=== PATIENT | female | born 1970 | race Caucasian/White ===

== ENCOUNTER 2017-06-01 16:35 | Emergency (ER) | payer BC ==
[2017-06-01] MEDS ORDERED: Sodium Chloride 0.9% 10 ML Syringe FLUSH PRN (16:56)
[2017-06-01] MEDS ORDERED: Aspirin 81 MG Tab.Chew PO ONE (16:57)
--- NOTE | 2017-06-01 17:02 | EDM.PDOC ---
ED HPI GENERAL MEDICAL PROBLEM - General Chief Complaint: Chest Pain Stated Complaint: Chest pressure Time Seen by Provider: 06/01/17 16:40 Source of Information: Reports: Patient, Provider (Report recieved from Esther MARTIN), RN Notes Reviewed History Limitations: Reports: No Limitations - History of Present Illness INITIAL COMMENTS - FREE TEXT/NARRATIVE: 47 year old female referred to the ED by Esther MARTIN for evaluation of chest pressure. The patient reports substernal chest pressure for the past two days. The symptoms have been intermittent. The pressure seems to be worse at rest and is not associated with exertion. The pressure radiates into her left neck, left shoulder, and into her back. She has no shortness of breath, pleuritic chest pain, cough, fever, chills, calf pain, or lower extremity erythema or swelling. She has no history of heart problems. She is a type II diabetic. She has a strong family history of coronary artery disease but no personal history of CAD. She is not a smoker. She is not on any forms if control. No recent travel. Left Chest Pain Score (Numeric/FACES): 5 - Related Data Allergies Allergy/AdvReac Type Severity Reaction Status Date / Time Antihistamines - Piperidine Allergy Hyperactivi Verified 06/01/17 16:44 ty cephalexin Allergy Hives Verified 06/01/17 16:44 Home Meds: Home Meds Dapagliflozin Propanediol [Farxiga] 1 tab PO DAILY 08/04/16 [History] Montelukast [Singulair] 10 mg PO DAILY PRN 08/04/16 [History] atorvaSTATin Calcium [Atorvastatin Calcium] 1 tab PO BEDTIME 08/04/16 [History] sitaGLIPtin Phos/Metformin HCl [Janumet Xr 50-1,000 mg Tablet] 1 tab PO BID [History] Past Medical History HEENT History: Reports: Allergic Rhinitis, Impaired Vision, Sinusitis Other HEENT History: throat discomfort, wears glasses Cardiovascular History: Reports: High Cholesterol Respiratory History: Reports: Other (See Below) Other Respiratory History: cough Gastrointestinal History: Reports: Other (See Below) Other Gastrointestinal History: endoscopy Neurological History: Reports: Migraines Endocrine/Metabolic History: Reports: Diabetes, Type II, Other (See Below) Other Endocrine/Metabolic History: thyroid nodule - Past Surgical History Female Surgical History: Reports: Hysterectomy Musculoskeletal Surgical History: Reports: Other (See Below) Social & Family History - Tobacco Use Smoking Status *Q: Never Smoker - Recreational Drug Use Recreational Drug Use: No ED ROS GENERAL - Review of Systems Review Of Systems: See Below Constitutional: Reports: No Symptoms. Denies: Fever, Chills, Diaphoresis Respiratory: Reports: No Symptoms. Denies: Shortness of Breath, Pleuritic Chest Pain, Cough, Sputum Cardiovascular: Reports: Chest Pain. Denies: Dyspnea on Exertion, Edema, Lightheadedness, Palpitations GI/Abdominal: Reports: Other (increased belching). Denies: Abdominal Pain, Nausea, Vomiting ED EXAM, GENERAL - Physical Exam Exam: See Below Exam Limited By: No Limitations General Appearance: Alert, Anxious, Obese Respiratory/Chest: No Respiratory Distress, Lungs Clear, Normal Breath Sounds Cardiovascular: Normal Peripheral Pulses, Regular Rate, Rhythm, No Edema, No Murmur GI/Abdominal: Normal Bowel Sounds, Soft, Non-Tender, No Distention Extremities: Normal Inspection. No: Pedal Edema, Increased Warmth Neurological: Alert, Oriented, Normal Cognition Psychiatric: Anxious, Tearful Skin Exam: Warm, Dry, Intact EKG INTERPRETATION EKG Date: 06/01/17 Time: 16:47 Rhythm: NSR Rate (Beats/Min): 91 [place]: Normal P-Wave: Present QRS: Normal ST-T: Normal QT: Normal EKG Interpretation Comments: No acute ischemic changes. Read by Dr. Irizarry. Course - Vital Signs Last Recorded V/S: Last Vital Signs Temp 97.7 F 06/01/17 19:35 Pulse 89 06/01/17 19:35 Resp 16 06/01/17 19:35 BP 145/86 H 06/01/17 19:35 Pulse Ox 96 06/01/17 19:35 - Orders/Labs/Meds Labs: Laboratory Tests 06/01/17 06/01/17 06/01/17 Range/Units 16:55 16:56 19:10 WBC 9.78 (3.98-10.04) K/mm3 RBC 5.31 H (3.98-5.22) M/mm3 Hgb 14.2 (11.2-15.7) gm/L Hct 43.9 (34.1-44.9) % MCV 82.7 (79.4-94.8) fl MCH 26.7 (25.6-32.2) pg MCHC 32.3 (32.2-35.5) g/dl RDW Std Deviation 41.9 (36.4-46.3) fL Plt Count 297 (182-369) K/mm3 MPV 10.0 (9.4-12.3) fl Neut % (Auto) 55.6 (34.0-71.1) % Lymph % (Auto) 35.7 (19.3-51.7) % [place] % (Auto) 5.0 (4.7-12.5) % Eos % (Auto) 3.3 (0.7-5.8) Baso % (Auto) 0.3 (0.1-1.2) % Neut # (Auto) 5.44 (1.56-6.13) K/mm3 Lymph # (Auto) 3.49 (1.18-3.74) K/mm3 [place] # (Auto) 0.49 H (0.24-0.36) K/mm3 Eos # (Auto) 0.32 (0.04-0.36) K/mm3 Baso # (Auto) 0.03 (0.01-0.08) K/mm3 Sodium 139 (136-145) mEq/L Potassium 3.9 (3.5-5.1) mEq/L Chloride 102 (98-107) mEq/L Carbon Dioxide 29 (21-32) mEq/L Anion Gap 11.9 (5-15) BUN 15 (7-18) mg/dL Creatinine 0.9 (0.55-1.02) mg/dL Est Cr Clr Drug Dosing 68.79 mL/min Estimated GFR (MDRD) > 60 (>60) mL/min BUN/Creatinine Ratio 16.7 (14-18) Glucose 136 H (74-106) mg/dL Calcium 9.3 (8.5-10.1) mg/dL Total Bilirubin 0.5 (0.2-1.0) mg/dL AST 32 (15-37) U/L ALT 57 (14-59) U/L Alkaline Phosphatase 98 (46-116) U/L Troponin I < 0.017 < 0.017 (0.00-0.056) ng/mL Total Protein 8.3 H (6.4-8.2) g/dl Albumin 4.4 (3.4-5.0) g/dl Globulin 3.9 gm/dL Albumin/Globulin Ratio 1.1 (1-2) Meds: Medications Discontinued Medications Generic Name Dose Route Start Last Admin Trade Name Anna PRN Reason Stop Dose Admin Aspirin 324 mg 06/01/17 16:57 06/01/17 17:01 Aspirin PO 06/01/17 16:58 324 mg ONETIME ONE Administration Sodium Chloride 10 ml 06/01/17 16:56 06/01/17 17:01 Saline Flush FLUSH 10 ml ASDIRECTED PRN Administration Keep Vein Open - Re-Assessments/Exams Free Text/Narrative Re-Assessment/Exam: Negative PERC rule making PE very unlikely. CBC and CMP are unremarkable. Initial and repeat 2 hour troponins are negative. The patient has tenderness on palpation to the chest and neck muscles. Likely musculoskeletal etiology. Will start her on omeprazole for the belching symptoms. Instructed to return with any new or worsening symptoms. Educated follow up with her PCP. We discussed her risk factors for heart disease. Departure - Departure Time of Disposition: 19:56 Disposition: Home, Self-Care 01 Condition: Good Clinical Impression: Belching Chest pain, unspecified Qualifiers: Chest pain type: unspecified Qualified Code(s): R07.9 - Chest pain, unspecified Neck muscle strain Qualifiers: Encounter type: initial encounter Qualified Code(s): S16.1XXA - Strain of muscle, fascia and tendon at neck level, initial encounter Instructions: Nonspecific Chest Pain Referrals: Brooke Vivas PA-C [Primary Care Provider] - Forms: ED Department Discharge Additional Instructions: Start Omeprazole 20mg twice a day Tylenol or Ibuprofen as needed for pain Heating pad to neck and areas of muscle discomfort. Follow-up with your primary care provider in 2-3 days for recheck Return to ER with any new or worsening symptoms.
[2017-06-01 19:36] VITALS: BP 145/86
--- NOTE | 2017-06-02 06:45 | CR ---
Chest: Portable view of the chest was obtained. Comparison: Previous chest x-ray of 02/06/16. Heart size and mediastinum are within normal limits for portable technique. Lungs are clear. Bony structures are grossly intact. Impression: 1. Nothing acute is seen on portable chest x-ray. Diagnostic code #1
== END 2017-06-01 20:08 | disposition home or self-care (01) ==
LOC: JD.ED 16:35
DX: S16.1XXA Strain of muscle, fascia and tendon at neck level, initial encounter (principal); R14.2 Eructation; R07.9 Chest pain, unspecified; E78.00 Pure hypercholesterolemia, unspecified; E11.9 Type 2 diabetes mellitus without complications; G43.909 Migraine, unspecified, not intractable, without status migrainosus; Z88.8 Allergy status to other drugs, medicaments and biological substances; Z79.899 Other long term (current) drug therapy; Z88.1 Allergy status to other antibiotic agents; Z90.710 Acquired absence of both cervix and uterus; X58.XXXA Exposure to other specified factors, initial encounter
CPT/HCPCS: 36415; 71010; 80053; 84484; 85025; 93005; 99285; A9270; J7050; 99283

== ENCOUNTER 2019-05-03 10:41 | Day surgery (SDC) | payer BC ==
[~2019-05-03 10:41] MED LIST: Lactated Ringers 1,000 ML IV SCH; Lidocaine 1%/Sod Bicarbonate in NS 8.4% 1 ML Syringe IDERM PRN; Sodium Chloride 0.9% 10 ML Syringe FLUSH PRN
[2019-05-03] MEDS ORDERED: Propofol 200 MG/20 ML SDV ONE ×2 (10:59→11:00)
[2019-05-03] MEDS ORDERED: Lidocaine 1% 4 ML ONE (11:00)
--- NOTE | 2019-05-03 11:29 | PCM.PREANE ---
Preanesthetic Assessment - Anesthesia/Transfusion/Family Hx Anesthesia History: Prior Anesthesia Without Reaction Family History of Anesthesia Reaction: No Transfusion History: No Prior Transfusion(s) - Review of Systems General: No Symptoms Pulmonary: No Symptoms Cardiovascular: No Symptoms Gastrointestinal: No Symptoms Neurological: No Symptoms Other: Reports: Diabetes (146 @11:00) - Physical Assessment NPO Status Date: 05/03/19 NPO Status Time: 04:00 Pulse: 79 O2 Sat by Pulse Oximetry: 96 Respiratory Rate: 16 Blood Pressure: 125/83 Temperature: 36.3 C Vital Signs: Last Vital Signs Temp 36.3 C 05/03/19 10:45 Pulse 79 05/03/19 10:45 Resp 16 05/03/19 10:45 BP 125/83 05/03/19 10:45 Pulse Ox 96 05/03/19 10:45 Height: 1.68 m Weight: 117.934 kg ASA Class: 2 Mental Status: Alert & Oriented x3 Airway Class: Mallampati = 2 Dentition: Reports: Normal Dentition Thyro-Mental Finger Breadths: 2 Mouth Opening Finger Breadths: 2 ROM/Head Extension: Full Lungs: Clear to Auscultation, Normal Respiratory Effort Cardiovascular: Regular Rate, Regular Rhythm - Allergies Allergies/Adverse Reactions: Allergies Allergy/AdvReac Type Severity Reaction Status Date / Time Antihistamines - Piperidine Allergy Hyperactivi Verified 05/02/19 13:55 ty cephalexin Allergy Hives Verified 05/02/19 13:55 - Blood Blood Available: No Product(s) Available: None - Anesthesia Plan Pre-Op Medication Ordered: None - Acknowledgements Anesthesia Type Planned: MAC Pt an Appropriate Candidate for the Planned Anesthesia: Yes Alternatives and Risks of Anesthesia Discussed w Pt/Guardian: Yes Pt/Guardian Understands and Agrees with Anesthesia Plan: Yes PreAnesthesia Questionnaire HEENT History: Reports: Allergic Rhinitis, Impaired Vision, Sinusitis, Other ( See Below) Other HEENT History: throat discomfort, wears glasses, pharyngitis, ear pain Cardiovascular History: Reports: High Cholesterol Respiratory History: Reports: Other (See Below) Other Respiratory History: cough Gastrointestinal History: Reports: Other (See Below) Other Gastrointestinal History: endoscopy, dysphagia Genitourinary History: Reports: Other (See Below) Other Genitourinary History: dysuria GALLEY BOY History: Reports: Other (See Below) Other OB/BYN History: vaginal irritation Neurological History: Reports: Headaches, Chronic, Migraines, Other (See Below) Other Neuro History: cerviclagia Psychiatric History: Reports: None Endocrine/Metabolic History: Reports: Diabetes, Type II, Other (See Below) Other Endocrine/Metabolic History: thyroid nodule Hematologic History: Reports: None Immunologic History: Reports: None Oncologic (Cancer) History: Reports: None Dermatologic History: Reports: Other (See Below) Other Dermatologic History: dry skin, hair loss - Past Surgical History Head Surgeries/Procedures: Reports: None HEENT Surgical History: Reports: Tonsillectomy Female Surgical History: Reports: Hysterectomy Musculoskeletal Surgical History: Reports: Other (See Below) Other Musculoskeletal Surgeries/Procedures:: hip surgery bilateral as child, states growth plates were off, has hardware in place Oncologic Surgical History: Reports: None - SUBSTANCE USE Smoking Status *Q: Never Smoker Tobacco Use Within Last Twelve Months: No Second Hand Smoke Exposure: No Days Per Week of Alcohol Use: 0 Number of Drinks Per Day: 0 Total Drinks Per Week: 0 Recreational Drug Use History: No - HOME MEDS Home Medications: Home Meds atorvaSTATin Calcium [Atorvastatin Calcium] 20 mg PO BEDTIME 08/04/16 [History] sitaGLIPtin Phos/Metformin HCl [Janumet Xr 50-1,000 mg Tablet] 1 tab PO BID [History] Azelastine/Fluticasone [Dymista Nasal [place]] 2 spray NASBOTH DAILY 05/02/19 [ History] Celecoxib 200 mg PO DAILY 05/02/19 [History] Dapagliflozin Propanediol [Farxiga] 10 mg PO DAILY 05/02/19 [History] Ibuprofen [Advil Migraine] 800 mg PO BEDTIME PRN 05/02/19 [History] Multivitamin [Zoo Chews] 1 tab PO DAILY 05/02/19 [History] - CURRENT (IN HOUSE) MEDS Current Meds: Current Medications Lactated Ringer's (Ringers, Lactated) 1,000 mls @ 125 mls/hr IV ASDIRECTED [place] Stop: 05/03/19 23:00 Last Admin: 05/03/19 11:00 Dose: 125 mls/hr Lidocaine/Sodium Bicarbonate (Buffered Lidocaine 1% In Ns 8.4%) 0.25 ml IDERM ONETIME PRN PRN Reason: Prior to IV Start Stop: 05/03/19 18:00 Sodium Chloride (Saline Flush) 10 ml FLUSH ASDIRECTED PRN PRN Reason: Keep Vein Open Stop: 05/03/19 18:00 Discontinued Medications Lidocaine HCl (Xylocaine-Mpf 1%) Confirm Administered Dose 4 mls @ as directed .ROUTE .STK-MED ONE Stop: 05/03/19 11:01 Propofol (Diprivan 20 Ml) Confirm Administered Dose 200 mg .ROUTE .STK-MED ONE Stop: 05/03/19 11:00 Propofol (Diprivan 20 Ml) Confirm Administered Dose 200 mg .ROUTE .STK-MED ONE Stop: 05/03/19 11:01
[2019-05-03] MEDS ORDERED: Midazolam 1 MG/ML 2 ML SDV ONE (11:53)
[2019-05-03] MEDS ORDERED: fentaNYL 100 MCG/2 ML SDV ONE (11:56)
[2019-05-03] MEDS ORDERED: Simethicone Drops 40 MG/0.6 ML 30 ML Bottle ONE (12:16)
[2019-05-03 12:53] VITALS: BP 123/79
--- NOTE | 2019-05-03 13:43 | OR ---
DATE OF OPERATION: 05/03/2019 SURGEON: Mani Ruhterford MD PREOPERATIVE DIAGNOSIS: Strong family history of colorectal cancer, colorectal cancer screening. POSTOPERATIVE DIAGNOSIS: Strong family history of colorectal cancer, colorectal cancer screening. OPERATION PERFORMED: Screening colonoscopy. FINDINGS: Normal colon. Excellent bowel prep. No diverticulosis. No polyps were identified. ANESTHESIA: MAC. PATHOLOGY: None. ESTIMATED BLOOD LOSS: None. COMPLICATIONS: None. DISPOSITION: Stable at the end of procedure. INDICATION: The patient is a 49-year-old female, here for her first colonoscopy. She has 3 siblings who all were diagnosed with colon cancer in the early 50s. She was offered a screening colonoscopy per the standard of care. She was fully informed of the major risks, benefits, and alternatives. Please see my previous note for further details of that discussion. She gave informed consent of what was done. DESCRIPTION OF PROCEDURE: The patient was brought to the Gastro suite and placed in the left lateral decubitus position. She was given monitored anesthesia. A digital rectal exam was performed. This was unremarkable. I introduced the colonoscope with copious lubrication into the rectum. I advanced the scope with gentle forward pressure keeping the lumen in view at all times. I identified the cecum. The cecum was documented photographically for the chart. I slowly investigated the mucosa of the colon from the cecum back to the anus in an exam lasting 8 minutes. A thorough careful examination failed to demonstrate polyps, diverticulosis, or any other concerning finding. I got an excellent visualization due to her excellent bowel prep. At the end of the procedure, the scope was withdrawn. She was awakened from anesthesia and moved to Recovery in stable condition. PLAN: She will need another screening colonoscopy in 5 years due to her strong family history of colon cancer. MMODAL /[id number]
== END 2019-05-03 12:45 | disposition home or self-care (01) ==
LOC: JD.SDS 10:41
PROVIDERS: ATTEND Surgery
DX: Z12.11 Encounter for screening for malignant neoplasm of colon (principal); Z80.0 Family history of malignant neoplasm of digestive organs; E11.9 Type 2 diabetes mellitus without complications; E78.00 Pure hypercholesterolemia, unspecified; R13.10 Dysphagia, unspecified; M79.641 Pain in right hand; M79.642 Pain in left hand; M25.551 Pain in right hip; M25.552 Pain in left hip; Z88.1 Allergy status to other antibiotic agents; Z88.8 Allergy status to other drugs, medicaments and biological substances; Z79.84 Long term (current) use of oral hypoglycemic drugs; Z79.899 Other long term (current) drug therapy; G43.909 Migraine, unspecified, not intractable, without status migrainosus
CPT/HCPCS: 00812; 82962; A9270-GY; J2001; J2250; J2704; J3010; J7120

== ENCOUNTER 2020-09-28 23:43 | Emergency (ER) | payer BC ==
[2020-09-29 00:02] VITALS: BP 183/84; PULSE 88
[2020-09-29] MEDS ORDERED: Acetaminophen/Codeine 120-12 MG/5 ML Soln 5 ML UD Cup PO ONE (00:38)
[2020-09-29] MEDS ORDERED: Ondansetron 4 MG/2 ML SDV IVPUSH ONE (00:38)
[2020-09-29] MEDS ORDERED: Sodium Chloride 0.9% 1,000 ML IV SCH (00:45)
--- NOTE | 2020-09-29 00:46 | EDM.PDOC ---
ED HPI GENERAL MEDICAL PROBLEM - General Chief Complaint: Respiratory Problem Stated Complaint: COVID +, SOB, COUGH, VOMITING Time Seen by Provider: 09/29/20 00:04 Source of Information: Reports: Patient History Limitations: Reports: No Limitations - History of Present Illness INITIAL COMMENTS - FREE TEXT/NARRATIVE: This is a 50-year-old female. She was diagnosed with Covid late this week may be or Wednesday. She has had symptoms now for about 7 days. She complains of a cough body aches nausea vomiting and some diarrhea. When she arrived to the ER her pulse ox was 93% on room air temperature was 99.7. She states that she is having a hard time keeping fluids and food down because she gets nauseated and vomits them back up. She also has a persistent nagging cough that keeps her from being able to sleep and rest. She states she just feels miserable. Generalized Pain Score (Numeric/FACES): 6 - Related Data Allergies Allergy/AdvReac Type Severity Reaction Status Date / Time Antihistamines - Piperidine Allergy Hyperactivi Verified 09/29/20 00:02 ty cephalexin Allergy Hives Verified 09/29/20 00:02 Home Meds: Home Meds atorvaSTATin Calcium [Atorvastatin Calcium] 20 mg PO BEDTIME 08/04/16 [History] sitaGLIPtin Phos/Metformin HCl [Janumet Xr 50-1,000 mg Tablet] 1 tab PO BID 08/04/16 [History] Azelastine/Fluticasone [Dymista Nasal [place]] 2 spray NASBOTH DAILY 05/02/19 [History] Celecoxib 200 mg PO DAILY 05/02/19 [History] Dapagliflozin Propanediol [Farxiga] 10 mg PO DAILY 05/02/19 [History] Ibuprofen [Advil Migraine] 800 mg PO BEDTIME PRN 05/02/19 [History] Multivitamin [Zoo Chews] 1 tab PO DAILY 05/02/19 [History] Acetaminophen with Codeine [Acetaminophen-Codeine Elixir] 10 ml PO Q6H PRN #473 elixir 09/29/20 [Rx] Albuterol Sulfate [Albuterol Sulfate Hfa] 2 puff IH Q6H PRN #1 hfa.aer.ad 09/29/20 [Rx] Ondansetron [Zofran] 4 mg PO Q6H PRN #15 tab 09/29/20 [Rx] Past Medical History HEENT History: Reports: Allergic Rhinitis, Impaired Vision, Sinusitis, Other (See Below) Other HEENT History: throat discomfort, wears glasses, pharyngitis, ear pain Cardiovascular History: Reports: High Cholesterol Respiratory History: Reports: Other (See Below) Other Respiratory History: cough Gastrointestinal History: Reports: Other (See Below) Other Gastrointestinal History: endoscopy, dysphagia Genitourinary History: Reports: Other (See Below) Other Genitourinary History: dysuria INGREDIENT SCALER History: Reports: Other (See Below) Other INGREDIENT SCALER History: vaginal irritation Neurological History: Reports: Headaches, Chronic, Migraines, Other (See Below) Other Neuro History: cerviclagia Psychiatric History: Reports: None Endocrine/Metabolic History: Reports: Diabetes, Type II, Other (See Below) Other Endocrine/Metabolic History: thyroid nodule Hematologic History: Reports: None Immunologic History: Reports: None Oncologic (Cancer) History: Reports: None Dermatologic History: Reports: Other (See Below) Other Dermatologic History: dry skin, hair loss - Infectious Disease History Infectious Disease History: Reports: Novel Coronavirus - Past Surgical History HEENT Surgical History: Reports: Tonsillectomy Female Surgical History: Reports: Hysterectomy, Salpingo-Oophorectomy Musculoskeletal Surgical History: Reports: Hip Replacement, Other (See Below) Other Musculoskeletal Surgeries/Procedures:: hip surgery bilateral as child, states growth plates were off, has hardware in place Social & Family History - Tobacco Use Tobacco Use Status *Q: Unknown Ever Used Tobacco - Caffeine Use Caffeine Use: Reports: Coffee ED ROS GENERAL - Review of Systems Review Of Systems: See Below Constitutional: Reports: Fever, Chills, Fatigue HEENT: Reports: Rhinitis. Denies: Throat Pain, Throat Swelling Respiratory: Reports: Shortness of Breath, Cough. Denies: Wheezing Cardiovascular: Reports: No Symptoms Endocrine: Reports: No Symptoms GI/Abdominal: Reports: Diarrhea, Nausea, Vomiting. 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) Eye Exam: Bilateral Eye: Normal Inspection Ears: Normal External Exam, Normal Canal, Normal TMs Nose: Normal Inspection, Clear Rhinorrhea Throat/Mouth: Normal Inspection, Normal Lips, Normal Oropharynx, Normal Voice, No Airway Compromise, Other (Mucous membranes are tacky) Head: Normocephalic Neck: Supple Respiratory/Chest: No Respiratory Distress, Lungs Clear, Normal Breath Sounds, Other (Occasional wheezes noted) Cardiovascular: Regular Rate, Rhythm, No Murmur GI/Abdominal: Soft, Non-Tender Back Exam: Normal Inspection, Full Range of Motion Extremities: Normal Inspection, Normal Range of Motion Neurological: Alert, Oriented Psychiatric: Normal Affect, Normal Mood Skin Exam: Warm, Dry Course - Vital Signs Last Recorded V/S: Last Vital Signs Temp 99.7 F 09/28/20 23:57 Pulse 88 09/28/20 23:57 Resp 30 H 09/28/20 23:57 BP 183/84 H 09/28/20 23:57 Pulse Ox 93 L 09/28/20 23:57 - Orders/Labs/Meds Orders: Active Orders 24 hr Category Date Time Status CXR [Chest 1V Frontal] [CR] Stat Exams 09/29/20 00:37 Taken Sodium Chloride 0.9% [Normal Saline] 1,000 ml Med 09/29/20 00:45 Active IV ASDIRECTED Medication Orders Sodium Chloride (Normal Saline) 1,000 mls @ 1,000 mls/hr IV ASDIRECTED [place] Last Admin: 09/29/20 00:59 Dose: 1,000 mls/hr Documented by: ALEENA Labs: Laboratory Tests 09/29/20 09/29/20 09/29/20 Range/Units 00:55 00:55 00:55 WBC 3.22 L (3.98-10.04) K/mm3 RBC 4.35 (3.98-5.22) M/mm3 Hgb 11.9 D (11.2-15.7) gm/dl Hct 36.5 (34.1-44.9) % MCV 83.9 (79.4-94.8) fl MCH 27.4 (25.6-32.2) pg MCHC 32.6 (32.2-35.5) g/dl RDW Std Deviation 45.4 (36.4-46.3) fL Plt Count 177 L D (182-369) K/mm3 MPV 10.8 (9.4-12.3) fl Neut % (Auto) 76.4 H (34.0-71.1) % Lymph % (Auto) 17.1 L (19.3-51.7) % [place] % (Auto) 5.9 (4.7-12.5) % Eos % (Auto) 0.3 L (0.7-5.8) Baso % (Auto) 0.3 (0.1-1.2) % Neut # (Auto) 2.46 (1.56-6.13) K/mm3 Lymph # (Auto) 0.55 L (1.18-3.74) K/mm3 [place] # (Auto) 0.19 L (0.24-0.36) K/mm3 Eos # (Auto) 0.01 L (0.04-0.36) K/mm3 Baso # (Auto) 0.01 (0.01-0.08) K/mm3 Sodium 128 L D (136-145) mEq/L Potassium 3.6 (3.5-5.1) mEq/L Chloride 91 L D (98-107) mEq/L Carbon Dioxide 25 (21-32) mEq/L Anion Gap 15.6 H (5-15) BUN 6 L (7-18) mg/dL Creatinine 0.8 (0.55-1.02) mg/dL Est Cr Clr Drug Dosing 77.88 mL/min Estimated GFR (MDRD) > 60 (>60) mL/min BUN/Creatinine Ratio 7.5 L (14-18) Glucose 231 H (74-106) mg/dL Calcium 8.8 (8.5-10.1) mg/dL Ferritin 728 H (8-252) ng/ml Total Bilirubin 0.6 (0.2-1.0) mg/dL AST 43 H (15-37) U/L ALT 35 (14-59) U/L Alkaline Phosphatase 66 (46-116) U/L Lactate Dehydrogenase 429 H (81-234) U/L Troponin I < 0.017 (0.00-0.056) ng/mL C-Reactive Protein 14.8 H* (<1.0) mg/dL Total Protein 7.5 (6.4-8.2) g/dl Albumin 3.2 L (3.4-5.0) g/dl Globulin 4.3 gm/dL Albumin/Globulin Ratio 0.7 L (1-2) Meds: Medications Generic Name Dose Route Start Last Admin Trade Name Anna PRN Reason Stop Dose Admin Sodium Chloride 1,000 mls @ 1,000 mls/hr 09/29/20 00:45 09/29/20 00:59 Normal Saline IV 1,000 mls/hr ASDIRECTED [place] Administration Discontinued Medications Generic Name Dose Route Start Last Admin Trade Name Anna PRN Reason Stop Dose Admin Acetaminophen/Codeine Phosphate 10 ml 09/29/20 00:38 09/29/20 00:56 Tylenol/Codeine 120-12 Mg/5 Ml PO 09/29/20 00:39 10 ml ONETIME ONE Administration Ondansetron HCl 4 mg 09/29/20 00:38 09/29/20 00:59 Zofran IVPUSH 09/29/20 00:39 4 mg ONETIME ONE Administration - Radiology Interpretation Free Text/Narrative:: Chest x-ray does suggest the groundglass appearance of a Covid lung. - Re-Assessments/Exams Free Text/Narrative Re-Assessment/Exam: 09/29/20 02:15 And is noted to have elevated parameters of ferritin LDH C-reactive protein related to her Covid infection. I spoke to her about her x-ray and her lab work and also her lobe sodium. I encouraged her to drink Gatorade more than water but she is got to drink fluids. Her cough has settled down which she is grateful for. I will also put her on a albuterol inhaler since she has a history of asthma and she is having some mild wheezing. She is to stay in quarantine until the 14-day is up and then she needs to follow-up with her family doctor for recheck. Departure - Departure Time of Disposition: 02:16 Disposition: Home, Self-Care 01 Condition: Fair Clinical Impression: Lab test positive for detection of COVID-19 virus, Pneumonia due to COVID-19 virus, Hyponatremia, Dehydration, Cough, History of asthma - Discharge Information *PRESCRIPTION DRUG MONITORING PROGRAM REVIEWED*: Not Applicable *COPY OF PRESCRIPTION DRUG MONITORING REPORT IN PATIENT SOPHIA: Not Applicable Prescriptions: Acetaminophen with Codeine [Acetaminophen-Codeine Elixir] 10 ml PO Q6H PRN #473 elixir PRN Reason: Cough Albuterol Sulfate [Albuterol Sulfate Hfa] 2 puff IH Q6H PRN #1 hfa.aer.ad PRN Reason: Wheezing Ondansetron [Zofran] 4 mg PO Q6H PRN #15 tab PRN Reason: Nausea Instructions: COVID-19 Frequently Asked Questions, Rehydration, Adult Referrals: Gladis Parsons PA-C [Primary Care Provider] - Forms: ED Department Discharge Additional Instructions: Even if you do not eat you must drink fluids to stay hydrated, it is preferable if you drink fluids such as Gatorade or Powerade to have electrolytes since your sodium is slightly low, take the medicine as needed for nausea, take the cough syrup as needed for your cough, use the albuterol inhaler as needed for your wheezing, stay in quarantine for the total of 14 days, once you are out of quarantine follow-up with your family doctor for recheck, return to the ER if needed Sepsis Event Note (ED) - Evaluation Sepsis Screening Result: No Definite Risk - Focused Exam Vital Signs: Vital Signs Temp Pulse Resp BP Pulse Ox 09/28/20 23:57 99.7 F 88 30 H 183/84 H 93 L - My Orders Last 24 Hours: My Active Orders 09/29/20 00:37 CXR [Chest 1V Frontal] [CR] Stat 09/29/20 00:45 Sodium Chloride 0.9% [Normal Saline] 1,000 ml IV ASDIRECTED - Assessment/Plan Last 24 Hours: My Active Orders 09/29/20 00:37 CXR [Chest 1V Frontal] [CR] Stat 09/29/20 00:45 Sodium Chloride 0.9% [Normal Saline] 1,000 ml IV ASDIRECTED
--- NOTE | 2020-09-30 09:41 | CR ---
PROCEDURE INFORMATION: Exam: XR Chest, 1 View Exam date and time: 09/29/2020 12:57 AM Age: 50 years old Clinical indication: Cough and shortness of breath; Patient HX: PT has cough, SOB onset 5 days ago; Additional info: Prior report scanned in for your review TECHNIQUE: Imaging protocol: XR of the chest Views: 1 view. COMPARISON: DX Chest 2V 04/20/2019 1:42 PM FINDINGS: Lungs: Multifocal airspace opacities bilaterally worrisome for multifocal pneumonia. Some of the parenchymal opacities and nodular and underlying malignancy cannot be excluded. Pleural space: Unremarkable. No pleural effusion. No pneumothorax. Heart/Mediastinum: Unremarkable. No cardiomegaly. Bones/joints: Unremarkable. IMPRESSION: Multifocal nodular and confluent opacities bilaterally worrisome for multifocal pneumonia. Underlying neoplastic process not excluded. Consider follow up to clearing as clinically indicated Thank you for allowing us to participate in the care of your patient. Dictated and Authenticated by: Sheba Duvall MD 09/29/2020 2:47 AM Central Time ([place] & [place]) MTDD
== END 2020-09-29 02:37 | disposition home or self-care (01) ==
LOC: JD.ED 23:43
DX: U07.1 COVID-19 (principal); J12.89 Other viral pneumonia; E87.1 Hypo-osmolality and hyponatremia; E86.0 Dehydration; J45.909 Unspecified asthma, uncomplicated; E78.00 Pure hypercholesterolemia, unspecified; E11.9 Type 2 diabetes mellitus without complications; Z88.1 Allergy status to other antibiotic agents; Z88.8 Allergy status to other drugs, medicaments and biological substances; Z79.84 Long term (current) use of oral hypoglycemic drugs; Z79.899 Other long term (current) drug therapy
CPT/HCPCS: 36415; 71045; 80053; 82728; 83615; 84484; 85025; 86140; 96374; 99284; J2405; J7030

== ENCOUNTER 2020-10-01 14:01 | Emergency (ER) | payer BC ==
[2020-10-01 14:19] VITALS: BP 138/75; PULSE 108
[2020-10-01] MEDS ORDERED: Sodium Chloride 0.9% 10 ML Syringe FLUSH PRN (14:25)
--- NOTE | 2020-10-01 14:58 | CR ---
PROCEDURE INFORMATION: Exam: XR Chest, 1 View Exam date and time: 10/01/2020 2:15 PM Age: 50 years old Clinical indication: Cough and shortness of breath and other: Hypoxia, covid+ TECHNIQUE: Imaging protocol: XR of the chest Views: 1 view. COMPARISON: OT Chest 1V Frontal 09/29/2020 12:57 AM FINDINGS: Lungs: Diffuse patchy airspace opacities noted throughout the lungs bilaterally. Pleural space: Unremarkable. No pleural effusion. No pneumothorax. Heart/Mediastinum: Unremarkable. No cardiomegaly. Diaphragm: There is nonspecific elevation of the right hemidiaphragm. Bones/joints: Unremarkable. IMPRESSION: Diffuse patchy airspace opacities noted throughout the lungs bilaterally. Findings consistent with edema, viral or atypical pneumonia. Other etiologies are not excluded. Thank you for allowing us to participate in the care of your patient. Dictated and Authenticated by: Win Alvarado DO 10/01/2020 3:50 PM Central Time ([place] & [place]) MTDTiana
--- NOTE | 2020-10-01 15:00 | EDM.PDOC ---
ED HPI GENERAL MEDICAL PROBLEM - General Chief Complaint: Respiratory Problem Stated Complaint: SEEN 2 DAYS AGO NOT BETTER Time Seen by Provider: 10/01/20 14:24 Source of Information: Reports: Patient, RN Notes Reviewed History Limitations: Reports: No Limitations - History of Present Illness INITIAL COMMENTS - FREE TEXT/NARRATIVE: Patient is a 50-year-old female with a known diagnosis of COVID-19 presenting to the emergency department with complaints of increased shortness of breath, dizziness, and hypoxia. She states this morning upon waking, she felt dizzy and lightheaded. She had her sister come over and check her oxygen saturation and it was in the low 60s. On presentation to the ER, oxygen saturation was 62% on room air. Oxygen was applied at 6 L by nasal cannula on triage. Saturation increased to 88 to 91%. Patient states that she began getting sick 9 days ago. She was seen in this emergency department 2 days ago for complaints of cough and shortness of breath. At that time oxygen saturations were found to be 93% on room air. Additionally, she has symptoms of headache, fever, chills, nausea, vomiting, diarrhea, and loss of taste and smell.. Prescribed Tylenol with codeine for treatment of her cough which she states did help substantially patient has a past medical history significant for high cholesterol, type 2 diabetes, and morbid obesity. - Related Data Allergies Allergy/AdvReac Type Severity Reaction Status Date / Time Antihistamines - Piperidine Allergy Severe Hyperactivi Verified 10/01/20 14:19 ty cephalexin Allergy Severe Hives Verified 10/01/20 14:19 Home Meds: Home Meds atorvaSTATin Calcium [Atorvastatin Calcium] 20 mg PO BEDTIME 08/04/16 [History] sitaGLIPtin Phos/Metformin HCl [Janumet Xr 50-1,000 mg Tablet] 1 tab PO BID 08/04/16 [History] Azelastine/Fluticasone [Dymista Nasal Deport] 2 spray NASBOTH DAILY 05/02/19 [History] Multivitamin [Zoo Chews] 1 tab PO DAILY 05/02/19 [History] Acetaminophen with Codeine [Acetaminophen-Codeine Elixir] 10 ml PO Q6H PRN #473 elixir 09/29/20 [Rx] Albuterol Sulfate [Albuterol Sulfate Hfa] 2 puff IH Q6H PRN #1 [email or web address] 09/29/20 [Rx] Ondansetron [Zofran] 4 mg PO Q6H PRN #15 tab 09/29/20 [Rx] Acetaminophen [Mapap] 650 mg PO Q4HR PRN 10/01/20 [History] Folic Acid 10 mg PO DAILY 10/01/20 [History] Hydroxychloroquine [Plaquenil] 200 mg PO BID 10/01/20 [History] Methotrexate 1 tab PO WEEKLY 10/01/20 [History] Past Medical History HEENT History: Reports: Allergic Rhinitis, Impaired Vision, Sinusitis, Other (See Below) Other HEENT History: throat discomfort, wears glasses, pharyngitis, ear pain Cardiovascular History: Reports: High Cholesterol Respiratory History: Reports: Other (See Below) Other Respiratory History: cough Gastrointestinal History: Reports: Other (See Below) Other Gastrointestinal History: endoscopy, dysphagia Genitourinary History: Reports: Other (See Below) Other Genitourinary History: dysuria [employer] DESIGNER History: Reports: Other (See Below) Other [employer] DESIGNER History: vaginal irritation Neurological History: Reports: Headaches, Chronic, Migraines, Other (See Below) Other Neuro History: cerviclagia Psychiatric History: Reports: None Endocrine/Metabolic History: Reports: Diabetes, Type II, Obesity/BMI 30+, Other (See Below) Other Endocrine/Metabolic History: thyroid nodule Hematologic History: Reports: None Immunologic History: Reports: None Oncologic (Cancer) History: Reports: None Dermatologic History: Reports: Other (See Below) Other Dermatologic History: dry skin, hair loss - Infectious Disease History Infectious Disease History: Reports: Novel Coronavirus - Past Surgical History HEENT Surgical History: Reports: Tonsillectomy Female Surgical History: Reports: Hysterectomy, Salpingo-Oophorectomy Musculoskeletal Surgical History: Reports: Hip Replacement, Other (See Below) Other Musculoskeletal Surgeries/Procedures:: hip surgery bilateral as child, states growth plates were off, has hardware in place Social & Family History - Tobacco Use Tobacco Use Status *Q: Never Tobacco User - Caffeine Use Caffeine Use: Reports: Coffee - Recreational Drug Use Recreational Drug Use: No ED ROS GENERAL - Review of Systems Review Of Systems: See Below Constitutional: Reports: Fever, Chills, Weakness, Fatigue HEENT: Reports: Rhinitis, Sinus Problem Respiratory: Reports: Shortness of Breath, Cough Cardiovascular: Reports: Dyspnea on Exertion Endocrine: Reports: No Symptoms GI/Abdominal: Reports: Diarrhea, Nausea, Vomiting. Denies: Abdominal Pain : Reports: No Symptoms Musculoskeletal: Reports: Other (generalized body aches) Skin: Reports: No Symptoms Neurological: Reports: Dizziness, Headache Psychiatric: Reports: No Symptoms Hematologic/Lymphatic: Reports: No Symptoms Immunologic: Reports: No Symptoms ED EXAM, GENERAL - Physical Exam Exam: See Below General Appearance: Alert, WD/WN, Mild Distress Respiratory/Chest: No Respiratory Distress, No Accessory Muscle Use, Chest Non- Tender, Decreased Breath Sounds (throughout), Rhonchi (throughout) Cardiovascular: Normal Peripheral Pulses, Regular Rate, Rhythm, No Edema, No Gallop, No JVD, No Murmur, No Rub GI/Abdominal: Normal Bowel Sounds, Soft, Non-Tender, No Organomegaly, No Distention, No Abnormal Bruit, No Mass Neurological: Alert, Oriented, CN II-XII Intact, Normal Cognition, Normal Gait, Normal Reflexes, No Motor/Sensory Deficits Psychiatric: Normal Affect, Normal Mood Skin Exam: Warm, Dry, Intact, Normal Color, No Rash #1 Interpretation EKG Date: 10/01/20 Time: 14:32 Rhythm: NSR Rate (Beats/Min): 107 [place]: Normal P-Wave: Present QRS: Normal ST-T: Normal QT: Prolonged (borderline) Course - Vital Signs Last Recorded V/S: Last Vital Signs Temp 97.4 F 10/01/20 14:15 Pulse 108 H 10/01/20 14:15 Resp 28 H 10/01/20 14:15 BP 138/75 10/01/20 14:15 Pulse Ox 62 L 10/01/20 14:15 - Orders/Labs/Meds Orders: Active Orders 24 hr Category Date Time Status EKG Documentation Completion [RC] ROUTINE Care 10/01/20 14:54 Active Peripheral IV Care [RC] . DIRECTED Care 10/01/20 14:26 Active Heparin Sodium/D5W [Heparin 25,000 Units in D5W 500 ML] Med 10/01/20 16:30 Active 25,000 units in 500 ml IV TITRATE Sodium Chloride 0.9% [Normal Saline] 1,000 ml Med 10/01/20 15:40 Active IV NOW Sodium Chloride 0.9% [Normal Saline] 100 ml Med 10/01/20 15:30 Active IV ASDIRECTED Sodium Chloride 0.9% [Saline Flush] Med 10/01/20 14:25 Active 10 ml FLUSH ASDIRECTED PRN Peripheral IV Insertion Adult [OM.PC] Stat Oth 10/01/20 14:26 Ordered Medication Orders Sodium Chloride (Normal Saline) 100 mls @ 60 mls/hr IV ASDIRECTED [place] Sodium Chloride (Normal Saline) 1,000 mls @ 75 mls/hr IV NOW STA Stop: 10/02/20 04:59 Last Admin: 10/01/20 16:21 Dose: 75 mls/hr Documented by: HERMMIC Heparin Sodium/Dextrose (Heparin 25,000 Units In D5w 500 Ml) 25,000 units in 500 mls @ 26 mls/hr IV TITRATE [place]; Protocol Sodium Chloride (Saline Flush) 10 ml FLUSH ASDIRECTED PRN PRN Reason: Keep Vein Open Last Admin: 10/01/20 14:57 Dose: 10 ml Documented by: HERMLES Labs: Laboratory Tests 10/01/20 10/01/20 10/01/20 Range/Units 14:25 14:25 14:25 WBC 5.26 (3.98-10.04) K/mm3 RBC 4.07 (3.98-5.22) M/mm3 Hgb 11.5 (11.2-15.7) gm/dl Hct 33.8 L (34.1-44.9) % MCV 83.0 (79.4-94.8) fl MCH 28.3 (25.6-32.2) pg MCHC 34.0 (32.2-35.5) g/dl RDW Std Deviation 45.6 (36.4-46.3) fL Plt Count 213 (182-369) K/mm3 MPV 10.7 (9.4-12.3) fl Neut % (Auto) 74.5 H (34.0-71.1) % Lymph % (Auto) 17.7 L (19.3-51.7) % [place] % (Auto) 7.0 (4.7-12.5) % Eos % (Auto) 0.6 L (0.7-5.8) Baso % (Auto) 0.2 (0.1-1.2) % Neut # (Auto) 3.92 (1.56-6.13) K/mm3 Lymph # (Auto) 0.93 L (1.18-3.74) K/mm3 [place] # (Auto) 0.37 H (0.24-0.36) K/mm3 Eos # (Auto) 0.03 L (0.04-0.36) K/mm3 Baso # (Auto) 0.01 (0.01-0.08) K/mm3 Manual Slide Review Normal smear D-Dimer, Quantitative 12.84 H (0.19-0.50) mg/L Puncture Site ABG pH (7.35-7.45) ABG pCO2 (35.0-45.0) mmHg ABG pO2 (80.0-100.0) mmHg ABG HCO3 (22.0-26.0) meq/L ABG O2 Saturation (96.0-97.0) % ABG Base Excess (-2-2.0) Arsen Test A-a Gradient mmHg O2 Delivery Device Oxygen Flow Rate FiO2 (21.00-100.00) % Sodium 126 L (136-145) mEq/L Potassium 3.7 (3.5-5.1) mEq/L Chloride 89 L (98-107) mEq/L Carbon Dioxide 25 (21-32) mEq/L Anion Gap 15.7 H (5-15) BUN 6 L (7-18) mg/dL Creatinine 0.8 (0.55-1.02) mg/dL Est Cr Clr Drug Dosing 77.88 mL/min Estimated GFR (MDRD) > 60 (>60) mL/min BUN/Creatinine Ratio 7.5 L (14-18) Glucose 300 H (74-106) mg/dL Calcium 8.7 (8.5-10.1) mg/dL Total Bilirubin 0.6 (0.2-1.0) mg/dL AST 49 H (15-37) U/L ALT 28 (14-59) U/L Alkaline Phosphatase 65 (46-116) U/L Troponin I 0.129 H* (0.00-0.056) ng/mL C-Reactive Protein 31.8 H* (<1.0) mg/dL NT-Pro-B Natriuret Pep (0-125) pg/mL Total Protein 7.5 (6.4-8.2) g/dl Albumin 2.7 L (3.4-5.0) g/dl Globulin 4.8 gm/dL Albumin/Globulin Ratio 0.6 L (1-2) 10/01/20 10/01/20 Range/Units 14:25 14:52 WBC (3.98-10.04) K/mm3 RBC (3.98-5.22) M/mm3 Hgb (11.2-15.7) gm/dl Hct (34.1-44.9) % MCV (79.4-94.8) fl MCH (25.6-32.2) pg MCHC (32.2-35.5) g/dl RDW Std Deviation (36.4-46.3) fL Plt Count (182-369) K/mm3 MPV (9.4-12.3) fl Neut % (Auto) (34.0-71.1) % Lymph % (Auto) (19.3-51.7) % [place] % (Auto) (4.7-12.5) % Eos % (Auto) (0.7-5.8) Baso % (Auto) (0.1-1.2) % Neut # (Auto) (1.56-6.13) K/mm3 Lymph # (Auto) (1.18-3.74) K/mm3 [place] # (Auto) (0.24-0.36) K/mm3 Eos # (Auto) (0.04-0.36) K/mm3 Baso # (Auto) (0.01-0.08) K/mm3 Manual Slide Review D-Dimer, Quantitative (0.19-0.50) mg/L Puncture Site Lt radial ABG pH 7.48 H (7.35-7.45) ABG pCO2 34.5 L (35.0-45.0) mmHg ABG pO2 68.0 L (80.0-100.0) mmHg ABG HCO3 25.1 (22.0-26.0) meq/L ABG O2 Saturation 93.6 L (96.0-97.0) % ABG Base Excess 2.1 H (-2-2.0) Arsen Test Positive A-a Gradient 202 mmHg O2 Delivery Device Nasal cannula Oxygen Flow Rate 6.0 FiO2 44.00 (21.00-100.00) % Sodium (136-145) mEq/L Potassium (3.5-5.1) mEq/L Chloride (98-107) mEq/L Carbon Dioxide (21-32) mEq/L Anion Gap (5-15) BUN (7-18) mg/dL Creatinine (0.55-1.02) mg/dL Est Cr Clr Drug Dosing mL/min Estimated GFR (MDRD) (>60) mL/min BUN/Creatinine Ratio (14-18) Glucose (74-106) mg/dL Calcium (8.5-10.1) mg/dL Total Bilirubin (0.2-1.0) mg/dL AST (15-37) U/L ALT (14-59) U/L Alkaline Phosphatase (46-116) U/L Troponin I (0.00-0.056) ng/mL C-Reactive Protein (<1.0) mg/dL NT-Pro-B Natriuret Pep 656 H (0-125) pg/mL Total Protein (6.4-8.2) g/dl Albumin (3.4-5.0) g/dl Globulin gm/dL Albumin/Globulin Ratio (1-2) Meds: Medications Generic Name Dose Route Start Last Admin Trade Name Freq PRN Reason Stop Dose Admin Sodium Chloride 100 mls @ 60 mls/hr 10/01/20 15:30 Normal Saline IV ASDIRECTED [facility] Sodium Chloride 1,000 mls @ 75 mls/hr 10/01/20 15:40 10/01/20 16:21 Normal Saline IV 10/02/20 04:59 75 mls/hr NOW STA Administration Heparin Sodium/Dextrose 25,000 units in 500 mls @ 26 mls/hr 10/01/20 16:30 Heparin 25,000 Units In D5w 500 Ml IV TITRATE [place] Protocol 1,300 UNITS/HR Sodium Chloride 10 ml 10/01/20 14:25 10/01/20 14:57 Saline Flush FLUSH 10 ml ASDIRECTED PRN Administration Keep Vein Open Discontinued Medications Generic Name Dose Route Start Last Admin Trade Name Freq PRN Reason Stop Dose Admin Dexamethasone 6 mg 10/01/20 15:02 10/01/20 15:11 Decadron IVPUSH 10/01/20 15:03 6 mg ONETIME ONE Administration Heparin Sodium (Porcine) 5,000 units 10/01/20 16:24 Heparin Sodium IVPUSH 10/01/20 16:25 .BOLUS ONE Iopamidol 100 ml 10/01/20 15:29 Isovue-370 (76%) IVPUSH 10/01/20 15:30 ONETIME ONE Sodium Chloride 10 ml 10/01/20 15:30 10/01/20 16:21 Saline Flush FLUSH 10/01/20 15:31 10 ml ONETIME ONE Administration - Re-Assessments/Exams Free Text/Narrative Re-Assessment/Exam: Patient is a 50-year-old female presenting to the emergency department with complaints of shortness of breath, dizziness, and low oxygen saturations. On triage, her oxygen saturation was 62% on room air. Currently satting 88 to 91% on 6 L by nasal cannula. She has a known diagnosis of COVID-19 and is on day 9 of her illness. She was seen in this emergency department 2 days ago. At that time she did have bilateral Covid pneumonia, however her oxygen saturations were maintaining in the low 90s on room air. She was discharged home. She is unsure when her oxygen saturations began to drop as she does not have a pulse oximeter at home. Her sister brought 1 today and that her oxygen was in the low 60s. Patient will need hospitalization. We have ordered a Covid work-up including CBC, CMP, CRP, D-dimer, troponin, ferritin, LDH, chest x-ray, EKG. We will continue to monitor on 6 L by nasal cannula. High flow nasal cannula is ready if we should need it. Also ordered ABGs. 10/01/20 15:40 Hematology was significant for D-dimer significantly elevated at 12.84, sodium 126, chloride 89, anion gap 15.7, glucose 300, troponin 0 0.129, proBNP 656. CRP is still pending. Confirms that she has had no significant chest pain over the last few days. I have ordered a CT angiogram of the chest. Once his results are available, I will begin calling to look for availability for transfer. ABGs on 6 L of oxygen by nasal cannula showed a pH of 7.48, PCO2 34.5, PO2 68.0, oxygen saturation 93.6 indicating that she is in a mild uncompensated respiratory alkalosis. 10/01/20 17:05 CRP came back elevated at 38.1. CT angiogram of the chest showed diffuse patchy airspace opacities noted throughout the lungs bilaterally. Findings consistent with edema, viral, or atypical pneumonia. Defects present within the pulmonary artery to the right upper lobe, left upper lobe, and lingula consistent with pulmonary emboli. No evidence of aortic dissection. Mild enlargement of the liver and spleen. I have ordered a heparin drip per VTE protocol. Called and spoke with hospitalist at [facility], Dr. Russell. He has accepted the patient for transfer. [facility] will dispatch their flight team to transport the patient. Patient remained stable on 6 L of oxygen satting 91%. Other vital signs are stable as well. Departure - Departure Time of Disposition: 16:40 Disposition: DC/Tfer to [facility] 02 Condition: Fair Clinical Impression: Pneumonia due to COVID-19 virus, Elevated troponin Pulmonary embolism Qualifiers: Pulmonary embolism type: unspecified Chronicity: acute Acute cor pulmonale presence: without acute cor pulmonale Qualified Code(s): I26.99 - Other pulmonary embolism without acute cor pulmonale - Discharge Information Referrals: Gladis Parsons PA-C [Primary Care Provider] - Forms: ED Department Discharge Sepsis Event Note (ED) - Evaluation Sepsis Screening Result: Possible Sepsis Risk - Focused Exam Vital Signs: Vital Signs Temp Pulse Resp BP Pulse Ox 10/01/20 14:15 97.4 F 108 H 28 H 138/75 62 L - My Orders Last 24 Hours: My Active Orders 10/01/20 14:25 Sodium Chloride 0.9% [Saline Flush] 10 ml FLUSH ASDIRECTED PRN 10/01/20 14:26 Peripheral IV Care [RC] . DIRECTED Peripheral IV Insertion Adult [OM.PC] Stat 10/01/20 14:54 EKG Documentation Completion [RC] ROUTINE 10/01/20 15:30 Sodium Chloride 0.9% [Normal Saline] 100 ml IV ASDIRECTED 10/01/20 15:40 Sodium Chloride 0.9% [Normal Saline] 1,000 ml IV NOW 10/01/20 16:30 Heparin Sodium/D5W [Heparin 25,000 Units in D5W 500 ML] 25,000 units in 500 ml IV TITRATE - Assessment/Plan Last 24 Hours: My Active Orders 10/01/20 14:25 Sodium Chloride 0.9% [Saline Flush] 10 ml FLUSH ASDIRECTED PRN 10/01/20 14:26 Peripheral IV Care [RC] . DIRECTED Peripheral IV Insertion Adult [OM.PC] Stat 10/01/20 14:54 EKG Documentation Completion [] ROUTINE 10/01/20 15:30 Sodium Chloride 0.9% [Normal Saline] 100 ml IV ASDIRECTED 10/01/20 15:40 Sodium Chloride 0.9% [Normal Saline] 1,000 ml IV NOW 10/01/20 16:30 Heparin Sodium/D5W [Heparin 25,000 Units in D5W 500 ML] 25,000 units in 500 ml IV TITRATE
[2020-10-01] MEDS ORDERED: Dexamethasone 4 MG/ML SDV IVPUSH ONE (15:02)
[2020-10-01] MEDS ORDERED: Iopamidol 755 Mg/ML 100 ML Bottle IVPUSH ONE (15:29)
[2020-10-01] MEDS ORDERED: Sodium Chloride 0.9% 10 ML Syringe FLUSH ONE (15:30)
[2020-10-01] MEDS ORDERED: Sodium Chloride 0.9% 100 ML IV SCH (15:30)
[2020-10-01] MEDS ORDERED: Sodium Chloride 0.9% 1,000 ML IV STA (15:40)
[2020-10-01] MEDS ORDERED: Heparin Sodium 5,000 Units/ML Vial IVPUSH ONE (16:24)
--- NOTE | 2020-10-01 16:24 | CT ---
PROCEDURE INFORMATION: Exam: CT Angiography Chest With Contrast Exam date and time: 10/01/2020 3:31 PM Age: 50 years old Clinical indication: Abnormal findings; Abnormal diagnostic tests; Elevated d- dimer; Patient HX: Hypoxia, covid TECHNIQUE: Imaging protocol: Computed tomographic angiography of the chest with intravenous contrast. 3D rendering (Not supervised by radiologist): MIP and/or 3D reconstructed images were created by the technologist. Contrast material: ISOVUE 370; Contrast volume: 100 ml; Contrast route: INTRAVENOUS (IV); COMPARISON: CR Chest 1V Frontal 10/01/2020 2:15 PM FINDINGS: Pulmonary arteries: Filling defect present within the pulmonary artery to the right upper lobe, left upper lobe and lingula consistent with pulmonary emboli. Aorta: No evidence of aortic dissection. Lungs: Diffuse patchy airspace opacities noted throughout the lungs bilaterally. Pleural space: There is no evidence of pneumothorax. Heart: Unremarkable. No cardiomegaly. No pericardial effusion. Lymph nodes: Unremarkable. No enlarged lymph nodes. Liver: There is a diffuse decrease in hepatic parenchymal density, consistent with mild fatty infiltration. Mild enlargement of the liver and spleen. Bones/joints: Unremarkable. No acute fracture. Soft tissues: Unremarkable. IMPRESSION: 1. Diffuse patchy airspace opacities noted throughout the lungs bilaterally. Findings consistent with edema, viral or atypical pneumonia. Other etiologies are not excluded. 2. Filling defect present within the pulmonary artery to the right upper lobe, left upper lobe and lingula consistent with pulmonary emboli. 3. No evidence of aortic dissection. 4. Mild enlargement of the liver and spleen. Thank you for allowing us to participate in the care of your patient. Dictated and Authenticated by: Win Alvarado DO 10/01/2020 5:22 PM Central Time ([place] & [place]) [facility]
[2020-10-01] MEDS ORDERED: Heparin Sodium/D5W 25,000 UNITS/500 ML BAG IV SCH (16:30)
== END 2020-10-01 19:05 ==
LOC: JD.ED 14:01
DX: U07.1 COVID-19 (principal); J12.89 Other viral pneumonia; R79.89 Other specified abnormal findings of blood chemistry; E78.00 Pure hypercholesterolemia, unspecified; E11.9 Type 2 diabetes mellitus without complications; E66.9 Obesity, unspecified; Z68.42 Body mass index [BMI] 45.0-49.9, adult; Z88.1 Allergy status to other antibiotic agents; Z88.8 Allergy status to other drugs, medicaments and biological substances; Z79.84 Long term (current) use of oral hypoglycemic drugs; Z79.899 Other long term (current) drug therapy
CPT/HCPCS: 36415; 36600; 71045; 71275; 80053; 82803; 83880; 84484; 85025; 85379; 86140; 93005; 96365; 96366; 96375; 99285; J1100; J1644; J7030